=== PATIENT | female | born 1990 | race Caucasian/White ===

== ENCOUNTER 2018-07-06 22:15 | Inpatient (IN) | payer OTHER ==
[2018-07-07] MEDS ORDERED: ACETAMINOPHEN/CODEINE #3 TAB PO
[2018-07-07] MEDS ORDERED: BUTORPHANOL 2 MG INJ IV
[2018-07-07] MEDS ORDERED: IBUPROFEN 600 MG TAB PO
[2018-07-07] MEDS ORDERED: HYDROCODONE/APAP (5/325) TAB PO (00:30)
[2018-07-07] MEDS: LACTATED RINGER'S 1,000 ML IV* ×3 (01:40→15:32)
[2018-07-07 02:04] LABS: ADD MAN DIFF? NO
[2018-07-07] MEDS: AMPICILLIN 2 GM/NS (PMX) 100 ML IV (02:05)
[2018-07-07 02:09] LABS: WHITE BLOOD COUNT 8.9 10^3/ul (4.8-10.8)
[2018-07-07 02:09] LABS: BASOPHILS % 0.3 % (0.0-2.0); EOSINOPHILS % 0.3 % (0.0-7.0); HEMATOCRIT 33.6 % (37.0-47.0); LYMPHOCYTES # 1.5 10^3/ul (0.8-2.9); LYMPHOCYTES % 16.7 % (15.0-51.0); MEAN CORPUSCULAR HEMOGLOBIN 29.3 pg (29.0-33.0); MEAN CORPUSCULAR HGB CONC 32.7 g/dl (32.0-37.0); MEAN CORPUSCULAR VOLUME 89.4 fl (82.0-101.0); MEAN PLATELET VOLUME 11.7 fl (7.4-10.4); MONOCYTE # 0.8 10^3/ul (0.3-0.9); MONOCYTES % 9.1 % (0.0-11.0); NEUTROPHIL # 6.5 10^3/ul (1.6-7.5); NEUTROPHILS % 73.2 % (39.0-77.0); PLATELET COUNT 183 10^3/UL (140-415); RED BLOOD COUNT 3.76 10^6/ul (4.20-5.40); RED CELL DISTRIBUTION WIDTH 13.4 % (11.5-14.5)
[2018-07-07] MEDS: OXYTOCIN 30 UNITS/LR 500 ML IV ×2 (02:11→06:53)
[2018-07-07 02:29] LABS: INR 0.92; PROTIME 12.4 Sec (11.9-14.9)
[2018-07-07 02:30] LABS: PARTIAL THROMBOPLASTIN TIME 26.3 Sec (25.0-35.0)
[2018-07-07 03:07] LABS: HEPATITIS B SURFACE ANTIGEN NEGATIVE (NEGATIVE)
[2018-07-07] MEDS: AMPICILLIN 1 GM/NS (PMX) 50 ML IV (06:00)
[2018-07-07] MEDS: METHYLERGONOVINE 0.2 MG INJ IM (06:20)
[2018-07-07] MEDS: LIDOCAINE 1% (MPF) 30 ML INJ INJ (07:20)
[2018-07-07] MEDS ORDERED: DEXTROSE 5%-LR 1,000 ML IV (07:32)
[2018-07-07] MEDS ORDERED: ZOLPIDEM 5 MG TAB PO (08:00)
[2018-07-07] MEDS ORDERED: OXYCODONE/ASPIRIN (4.88/325) TAB PO (08:00)
[2018-07-07] MEDS ORDERED: SENNA/DOCUSATE NA (8.6MG/50MG) TAB PO (08:00)
[2018-07-07] MEDS ORDERED: METHYLERGONOVINE 0.2 MG INJ IM (08:00)
[2018-07-07] MEDS ORDERED: CARBOPROST 250 MCG INJ IM ×2 (08:00)
[2018-07-07] MEDS ORDERED: MISOPROSTOL 200 MCG TAB PR ×2 (08:00)
[2018-07-07] MEDS ORDERED: DIPHENHYDRAMINE 50 MG INJ IV (08:00)
[2018-07-07] MEDS ORDERED: ACETAMINOPHEN 325 MG TAB PO (08:00)
[2018-07-07] MEDS ORDERED: ONDANSETRON 4 MG INJ IV (08:00)
[2018-07-07] MEDS ORDERED: DIBUCAINE 1% 30 GM OINT TOP (08:00)
[2018-07-07] MEDS ORDERED: OXYTOCIN 30 UNITS/LR 500 ML IV ×3 (08:00)
[2018-07-07] MEDS: MINERAL OIL LIGHT 10 ML VIAL TOP (08:44)
[2018-07-07] MEDS: LANOLIN 7 GM TUBE TOP (13:46)
[2018-07-07] MEDS: WITCH HAZEL/GLYCERIN PAD PR (13:46)
[2018-07-07] MEDS: IBUPROFEN 600 MG TAB PO ×3 (13:46→23:58)
[2018-07-07 16:22] LABS: RAPID PLASMA REAGIN NONREACTIVE (NR)
[2018-07-07] MEDS: BENZOCAINE 20% 56 ML SPRAY TOP (18:18)
[2018-07-08] MEDS: IBUPROFEN 600 MG TAB PO ×5 (05:54→23:53)
[2018-07-08 06:42] LABS: ADD MAN DIFF? NO; BASOPHILS % 0.4 % (0.0-2.0); EOSINOPHILS % 0.4 % (0.0-7.0); HEMATOCRIT 31.3 % (37.0-47.0); LYMPHOCYTES % 20.8 % (15.0-51.0); MEAN CORPUSCULAR HEMOGLOBIN 29.8 pg (29.0-33.0); MEAN CORPUSCULAR HGB CONC 31.9 g/dl (32.0-37.0); MEAN CORPUSCULAR VOLUME 93.2 fl (82.0-101.0); MEAN PLATELET VOLUME 11.8 fl (7.4-10.4); MONOCYTE # 0.8 10^3/ul (0.3-0.9); MONOCYTES % 8.2 % (0.0-11.0); NEUTROPHIL # 6.6 10^3/ul (1.6-7.5); NEUTROPHILS % 69.7 % (39.0-77.0); PLATELET COUNT 166 10^3/UL (140-415); RED BLOOD COUNT 3.36 10^6/ul (4.20-5.40)
[2018-07-08 06:42] LABS: WHITE BLOOD COUNT 9.5 10^3/ul (4.8-10.8)
[2018-07-09] MEDS: IBUPROFEN 600 MG TAB PO ×2 (06:07→12:05)
[2018-07-09] MEDS: MEASLES,MUMPS,RUBELLA VACCINE INJ SC* (09:00)
[2018-07-09] MEDS: DIPHTH/TET/ACEL PERTUSS (ADULT) 0.5 ML VIAL IM* (12:07)
== END 2018-07-09 16:23 | disposition home or self-care (01) | DRG 775 ==
LOC: OBT 22:15 → L-D 22:16 → PP1 07-07 13:40
PROVIDERS: Obstetrics & Gynecology
PROC: 10E0XZZ Delivery of Products of Conception, External Approach (ICD-10-PCS; principal; 2018-07-07)
PROC: 0HQ9XZZ Repair Perineum Skin, External Approach (ICD-10-PCS; 2018-07-07)
PROC: 0UQGXZZ Repair Vagina, External Approach (ICD-10-PCS; 2018-07-07)
DX: O70.0 First degree perineal laceration during delivery (principal); Z3A.39 39 weeks gestation of pregnancy; Z37.0 Single live birth; Z23 Encounter for immunization
CPT/HCPCS: 76815; 85025; 85610; 85730; 86592; 86850; 86900; 86901; 87340; 90715